=== PATIENT | female | born 1960 | race Caucasian/White ===

== ENCOUNTER 2016-09-28 07:35 | Emergency (ER) | payer MEDICAID ==
[~2016-09-28] VITALS: Ht 172.7 cm; Wt 79.1 kg
[2016-09-28] MEDS ORDERED: MORPHINE SULFATE 4 MG/ML, 1ML ONE ×2 (07:52→08:38)
[2016-09-28] MEDS ORDERED: ONDANSETRON 2MG/ML, 2ML ONE ×2 (07:52→09:52)
[2016-09-28] MEDS: MORPHINE SULFATE 4 MG/ML, 1ML IVPush PRN ×2 (07:57→08:42)
[2016-09-28] MEDS ORDERED: FAMOTIDINE 20 MG/2 ML ONE (07:59)
[2016-09-28] MEDS ORDERED: SODIUM CHLORIDE FLUSH 10ML SYR IVF ONE (08:00)
[2016-09-28] MEDS ORDERED: FAMOTIDINE 20 MG/2 ML IVP ONE (08:00)
[2016-09-28] MEDS ORDERED: ONDANSETRON 2MG/ML, 2ML IVPush ONE ×2 (08:00→10:00)
[2016-09-28] MEDS ORDERED: SODIUM CHLORIDE 0.9% 1,000ML IVBOLUS ONE (08:00)
[2016-09-28] MEDS ORDERED: cloniDINE 0.1MG PATCH TD STA (08:07)
[2016-09-28 08:29] LABS: ASPARTATE AMINO TRANSFERASE 21 U/L (15-37); BLOOD UREA NITROGEN 11 mg/dL (7-18)
[2016-09-28] MEDS ORDERED: CLON1PAT7 TD (08:44)
[2016-09-28 09:35] VITALS: BP 142/80
[2016-09-28] MEDS ORDERED: HYDROmorphone 1 MG/ML, 1ML ONE (09:51)
[2016-09-28] MEDS ORDERED: HYDROmorphone 1 MG/ML, 1ML IVPush PRN (10:00)
[2016-09-28] MEDS ORDERED: OMNIPAQUE 350 MG/ML, 100ML BOTTLE ONE (10:11)
== END 2016-09-28 11:27 | disposition home or self-care (01) ==
LOC: ED 09:05
DX: R10.13 Epigastric pain (principal); R10.84 Generalized abdominal pain; R31.29 Other microscopic hematuria; I10 Essential (primary) hypertension; F17.210 Nicotine dependence, cigarettes, uncomplicated
CPT/HCPCS: 36415; 74177; 76700; 80053; 81001; 83690; 85025; 96365; 96375; 96376; 99285; J1170; J2405; J7030; Q9967; S0028